=== PATIENT | female | born 1945 | race Caucasian/White ===

== ENCOUNTER → 2024-03-28 08:02 | Outpatient (REF) | payer MEDICARE, BC, SELFPAY | LOC: HWRCS 08:02 | PROVIDERS: ATTENDING PHYSICIAN Internal Medicine Cardiovascular Disease; FAMILY PHYSICIAN Internal Medicine | DX: R07.9 Chest pain, unspecified (principal) | CPT/HCPCS: 93306 ==

== ENCOUNTER → 2024-04-13 10:33 | Outpatient (REF) | payer MEDICARE, BC, SELFPAY | LOC: RCS 10:33 | PROVIDERS: ATTENDING PHYSICIAN Internal Medicine Cardiovascular Disease; FAMILY PHYSICIAN Internal Medicine | DX: R07.9 Chest pain, unspecified (principal) | CPT/HCPCS: 93017; 93350 ==

== ENCOUNTER 2024-10-18 08:41 | Inpatient (IN) | payer MEDICARE, BC, SELFPAY ==
[2024-10-17 19:39] VITALS: BP 124/63
[2024-10-17 19:42] VITALS: BP 124/63
[2024-10-17 19:54] VITALS: BMI 29.3
[2024-10-17 20:00] VITALS: BP 130/64
--- NOTE | 2024-10-17 20:09 | ED.GENMED ---
History of Present Illness
General
Chief Complaint: Chest Pain
Source: patient
Exam Limitations: none
Time Seen by Provider: 10/17/24 20:08
Nursing documentation reviewed up to this point in time: agreed with
History of Present Illness
History of Present Illness:
79-year-old female with history of NIDDM, HLD, presents from home for chest pressure.
Has had palpitations/heart racing for months, worked up by Dr. Henriquez with stress test, he is aware her HR is in 40's at times then goes 'fast at times.' Today what was different is 4 p.m. she broke out in a sweat and felt faint, sat down and it
passed after a couple minutes. Her checked: BP was 137/80 and oxygen was 98% She felt a little nauseous, did not vomit. She dozed off, awakened at 5 p.m. with 'like someone was sitting on my chest' pressure. Called EMS who instructed her to
take and chew 4 Baby ASA which she did, CP was 7/10, they gave her NTG SL x 3 en route, on arrival CP was 2/10 and now she states her chest pain is gone.
On arrival HR 49, during initial exam HR 72 NSR
Past History
Past History
ED Past Medical History: Hypercholesterolemia and NIDDM
ED Past Surgical History: Appendectomy, Cholecystectomy and Gynecological (Hysterectomy)
Social History
Tobacco: Non-smoker
Alcohol: None
Personal:
Living: with family
Employment: Retired
Review of Systems
Review of Systems
Allergies reviewed?: Yes
All Other Systems: ROS reviewed and negative except as documented in HPI and ROS
Constitutional: Denies fever or fatigue
Respiratory: Denies trouble breathing
Cardiac: Reports chest pain, diaphoresis and palpitations; Denies syncope
ABD/GI: Reports nausea; Denies abdominal pain, vomiting or diarrhea
: Denies dysuria or difficulty voiding
Musculoskeletal: Reports no symptoms
Skin: Reports no symptoms
Neurological: Reports no symptoms
Phy Exam
Physical Exam
Physical Exam:
GENERAL: No acute distress. A&Ox3.
CONSTITUTIONAL: Afebrile.
EYES: clear, conjunctivae normal
ENMT: moist mucus membranes, Pharynx nl
RESPIRATORY: Regular respirations, nonlabored, lungs clear.
CARDIOVASCULAR: Regular rate and rhythm, no murmurs, no rubs.
GI: Soft, nontender, normal BS
MUSCULOSKELETAL: Moves with ease. Well perfused. No edema
SKIN: Warm, dry, pink
PSYCH: Normal mood and affect. Well kept, interactive and appropriate
NEUROLOGIC: Awake, alert and oriented. No focal neurological deficits
Scores
Heart Score for Chest Pain Patients
STEMI patient?: No
History: Moderately Suspicious
ECG: Normal
Age: >/= 65 years
Risk Factors: 1 or 2 Risk Factors
Troponin: >1 - <3 x Normal Limit
Heart Score for Chest Pain Patients: 5
Heart Score Risk: 20.3% MACE over next 6 weeks
Course
Orders/Labs/Results
Orders:
Orders
10/17/24 Dinner
Cholesterol Lowering
At Your Request: Full Participation
Cholesterol Lowering: Sodium, 2 Gram
10/17/24 19:40
Electrocardiogram (*1) Urgent
Reason for Study: Chest Pain
EKG- Treatment ONCE
10/17/24 20:06
Complete Blood Count/With Diff Urgent
Comprehensive Metabolic Panel Urgent
Troponin I Urgent
10/17/24 20:45
CR Chest - 2 Views Urgent
Comment:
Reason For Exam: chest pain
10/17/24 20:48
Heparin 4,000 units IV NOW STA
Nursing to Place Non Medication Order As Directed
Physician Order: PTT 6 hours after initial start of Heparin infusion
Above order entered?: Yes
10/17/24 21:00
Heparin 28345 Units/250 ml 25,000 units in 250 ml IV PER PROTOCOL
Weight to be used for heparin protocol in kilograms (kg):: 72.5
Protocol:: Cardiac Tx/Acute Coronary
PTT Goal Range to be used:: PTT 73 to 111 seconds
Order type:: Initial
INITIAL Infusion Dose (UNITS/KG/hr) & then follow protocol:: 12 units/kg/hr
Infusion Dose in UNITS/hr & then follow protocol (UNITS/hr):: 850
INFUSION RATE in mL/hr & then follow protocol (mL/hr):: 8.5
PTT less than or equal to 64 seconds:: Increase rate by 200 units/hr (+ 2 mL/hr)
PTT 64.1 to 72.9 seconds:: Increase rate by 100 units/hr (+ 1 mL/hr)
PTT 73 to 111 seconds:: Target Range. No change in rate.
PTT 111.1 to 130.9 seconds:: Decrease rate by 100 units/hr (- 1 mL/hr)
PTT 131 to 199.9 seconds:: HOLD for 1 hr. Then decrease rate by 200 units/hr (- 2 mL/hr)
PTT greater than or equal to 200 seconds:: HOLD for 2 hrs & Notify Provider. Then decrease by 200 units/hr (-
2 mL/hr)
Lab follow-up:: Each change, PTT q6h until 2 consecutive are therapeutic. Then PTT
daily.
10/17/24 21:04
CARDIOLOGY CONSULT Urgent
Consulting Provider: Emanuel Elena
Was physician already notified: Yes
Reason for consult: NSTEMI
10/17/24 21:12
PTT Urgent
Comment: Obtain baseline before beginning heparin infusion if not already collected
10/17/24 21:19
Nitroglycerin Ointment [Nitro-Bid] 1 inch TOPICAL NOW STA
10/17/24 22:18
Admit/Transfer Patient As Directed
Co-Sign Provider:
Level of Care: Observation services
Assign to:: IVU
Physician / Group: Tasha Davila
Diagnosis: Chest pain/acute coronary syndrome
10/17/24 22:19
PRN Pain Medication Management As Directed
May give lesser potent ordered pain med per pt: Yes
preference::
Protocol:: Medication orders for pain may be administered in a
manner that supports deferring to patient preference
when the pt is:
- Requesting an ordered lesser potent pain medication.
Least to most potent pain medications are defined
as: acetaminophen < NSAID < tramadol < opioids
(morphine, oxycodone, hydromorphone).
- Requesting a lesser dose of the same medication IF
ORDERED.
- Requesting a less intrusive route of administration
if both routes are prescribed by the provider (PO <
IV).
10/17/24 22:20
Code Status As Directed
Resuscitation Status: Full Code
10/17/24 23:00
Flush (0.9% Sodium Chloride) [Flush (Nss)] See Dose Instructions IV PER PROTOCOL
10/17/24 23:01
Troponin I Urgent
10/17/24 23:34
Electrocardiogram (*1) Q6H
Reason for Study: Chest Pain
Comment: at admission and Q3H for total of 3, to be done with each troponin
Troponin I Q3H
Comment: at admit & Q3H for 3 total including ED draws, obtain ECG with each level
10/17/24 23:34
Glycohemoglobin (HgbA1c) Routine
TSH Routine
Activity As Directed
Activity Level: Out of Bed- Ad Jocy
INT (Intravenous Needle Therapy) As Directed
Comment: maintain peripheral IV access
Intake/ Output As Directed
Frequency: Per unit guidelines
Vital Signs As Directed
Frequency: q4h
Weight As Directed
Frequency: Once
10/18/24 00:00
Nitroglycerin Ointment [Nitro-Bid] 1 inch TOPICAL Q6
10/18/24 02:34
Troponin I Q3H
Comment: at admit & Q3H for 3 total including ED draws, obtain ECG with each level
10/18/24 03:20
PTT Urgent
10/18/24 05:34
Electrocardiogram (*1) Q6H
Reason for Study: Chest Pain
Comment: at admission and Q3H for total of 3, to be done with each troponin
10/18/24 Breakfast
NPO
Allow oral meds: Yes
Allow clear liquids: No
Cardiovascular Evaluation IN AM
Complete Blood Count/No Diff IN AM
Comprehensive Metabolic Panel IN AM
10/18/24 08:00
Atorvastatin [Lipitor] 40 mg PO DAILY
Dapagliflozin [Farxiga] 25 mg PO DAILY
Glimepiride [Amaryl] 4 mg PO BID AT 0800,1700
Losartan/Hydrochlorothiazide [Hyzaar 50-12.5] 1 tab PO DAILY
Prednisolone Acetate [Pred Forte 1% Eye Drops] 1 drop RIGHT EYE BID
Abnormal Lab Results
10/17/24
20:06
RBC 5.88 H 10^6/uL
(4.20-5.40)
Hgb 11.2 L g/dL
(12.0-16.0)
Hct 36.2 L %
(37.0-47.0)
MCV 61.6 L fL
(81.0-99.0)
MCH 19.0 L pg
(27.0-31.0)
MCHC 30.9 L g/dL
(33.0-37.0)
RDW 20.5 H %
(11.5-14.5)
Abs Immat Gran (auto) 0.2 H 10^3/uL
(0-0.05)
Absolute Neuts (auto) 6.9 H 10^3/uL
(1.4-6.5)
Absolute Lymphs (auto) 1.0 L 10^3/uL
(1.2-3.4)
Immature Gran % 1.7 H %
(0-0.5)
Neutrophils % 78.9 H %
(42.2-75.2)
Lymphocytes % 11.1 L %
(20.5-51.1)
BUN 21 H mg/dl
(7-17)
Glucose 178 H mg/dl
(70-99)
Total Bilirubin 2.6 H mg/dl
(0.2-1.3)
Troponin I 0.115 H* ng/ml
10/17/24 20:06
10/17/24 20:06
Vital Signs
Initial and Last Documented VS:
Initial Vital Signs
BP
124/63
10/17/24 19:39
Last Documented Vital Signs
Temp Pulse Resp BP Pulse Ox
98.3 F 83 15 134/66 95
10/17/24 19:42 10/18/24 00:00 10/18/24 00:00 10/17/24 22:00 10/18/24 00:00
Enamel Machine Operator consulted with Physician
Enamel Machine Operator consulted with physician?: Yes
Name of Physician Consulted: Margarito
MDM/Problems Addressed
Differential Diagnosis Includes:
ACS, NM, GERD
MDM/Problems Addressed:
79-year-old female with history of NIDDM, HLD, presents from home for chest pressure.
Has had palpitations/heart racing for months, worked up by Dr. Henriquez with stress test, he is aware her HR is in 40's at times then goes 'fast at times.' Today what was different is 4 p.m. she broke out in a sweat and felt faint, sat down and it
passed after a couple minutes. Her checked: BP was 137/80 and oxygen was 98% She felt a little nauseous, did not vomit. She dozed off, awakened at 5 p.m. with 'like someone was sitting on my chest' pressure. Called EMS who instructed her to
take and chew 4 Baby ASA which she did, CP was 7/10, they gave her NTG SL x 3 en route, on arrival CP was 2/10 and now she states her chest pain is gone.
On arrival HR 49, during initial exam HR 72 NSR
EKG on arrival: sinus bradycardia HR 51 with 1st degree block, RBBB
Afebrile, NAD
8:30 p.m.
CBC no clinically significant abnormality
CMP no clinically significant abnormality
Troponin elevated 0.115
Heparin drip started
Hospitalist and curtain cutter hand notified of admission. Cardiology consult in
At Dr. Elena's request, case reviewed with field control inspector Dr. Rapp who states does not think STEMI, if pt is pain free, on Heparin and Nitrate ok for now.
9:19 p.m.
Pt remains pain free
*Critical Care Note
Total Time (30-74mins, 75-104mins- exclusive of procedures): Not Applicable
ED Attending Note
-
Portions of this chart may have been created with voice recognition software.� Occasional wrong word or��sound alike� substitutions may have occurred due to the inherent limitations of voice recognition software.
Discharge Plan
Departure
Patient Disposition: Admit
Date of Disposition: 10/17/24
Time of Disposition: 21:02
Admit to: Telemetry
Presentation/result/management discussed w/ accepting MD/DO: Hospitalist
Condition: Fair
Discharge Problem:
Acute non-ST elevation myocardial infarction (NSTEMI)
Interventions
Interventions:
*Risk Screen - Suicide Last Done: 10/17/24 19:56
*General Assessment Last Done: 10/17/24 19:56
ED- Fall Risk Assessment Last Done: 10/17/24 19:56
*ED COVID-19 Vaccine History Last Done: 10/17/24 19:56
ED- Cardiac Assessment Last Done: 10/17/24 19:56
[2024-10-17 20:19] LABS: % Basophils 0.3 % (0-2); % Eosinophils 0.9 % (0-6); % Immature Granulocytes 1.7 % (0-0.5); % Lymphocytes 11.1 % (20.5-51.1); % Monocytes 7.1 % (1.7-9.3); % Neutrophils 78.9 % (42.2-75.2); Absolute Eosinophils 0.1 10^3/uL (0-0.7); Absolute Immature Granulocytes 0.2 10^3/uL (0-0.05); Absolute Monocytes 0.6 10^3/uL (0.1-0.6); Absolute Neutrophils 6.9 10^3/uL (1.4-6.5); Hematocrit 36.2 % (37.0-47.0); Hemoglobin 11.2 g/dL (12.0-16.0); Mean Corp Hgb Conc. 30.9 g/dL (33.0-37.0); Mean Corpuscular Volume 61.6 fL (81.0-99.0); Nucleated Red Blood Cells % 0.2 %; Platelet Count 150 10^3/uL (130-400); Red Blood Cell Count 5.88 10^6/uL (4.20-5.40); Red Cell Dist. Width 20.5 % (11.5-14.5); White Blood Cell Count 8.8 10^3/uL (4.8-10.8)
[2024-10-17 20:28] LABS: ALT (SGPT) 22 U/L (0-35); AST (SGOT) 26 U/L (14-36); Albumin 4.6 g/dl (3.5-5.0); Alkaline Phosphatase 72 U/L (38-126); Blood Urea Nitrogen 21 mg/dl (7-17); Calcium 9.4 mg/dl (8.4-10.2); Carbon Dioxide 24 mmol/L (22-30); Chloride 101 mmol/L (98-107); Estimated Creatinine Clearance 63 ml/min; Glucose 178 mg/dl (70-99); Potassium 3.9 mmol/L (3.5-5.1); Sodium 138 mmol/L (135-145); Total Bilirubin 2.6 mg/dl (0.2-1.3); Total Protein 6.7 g/dl (6.3-8.2); eGFR > 60.00
[2024-10-17 20:41] LABS: Troponin I 0.115 ng/ml
[2024-10-17 21:00] VITALS: BP 141/63
[2024-10-17] MEDS: HEPARIN 4000 UNITS IV (21:13)
--- NOTE | 2024-10-17 21:14 | HPS.HSE ---
Family Physician
-
Family Physician: Delma Ibanez
Chief Complaint
-
Chest pain
History of Present Illness
Patient is a 79-year-old female with past medical history significant for HLD and NIDDM who presented to [place] ED for evaluation of acute onset chest pain. Patient has had palpitations and heart racing for months, has seen Dr. Henriquez for
workup including stress test. Patient states he is aware that her HR can be 40s at times and then becomes tachycardic. Today patient had an episode of crushing chest pain at approximately 1600 where the pain was associated with diaphoresis and
nausea. Symptoms subsided enough with rest that she dozed off for a short period of time before being woken up with signifcant chest pressure, described as, 'someone sitting on my chest.' EMS was called, she took 4 baby aspirins prior to their
arrival and they administered 3 SL NTG on route to hospital. Interventions were effective and chest pain on arrival was minimal. Patient denies fever, chills, cough, vomiting, constipation, diarrhea or urinary symptoms.
Medical History
Past Medical History
Past Medical History: Reports Other
Additional Past Medical History:
hyperlipidemia
NIDDM
Past Surgical History: Reports Other
Additional Past Surgical History:
Appendectomy
Cholecystectomy
Hysterectomy
Left knee meniscus
Social History
Tobacco: Non-smoker
Alcohol: Occasional
Drug: None
Personal:
Living: With Family
Employment: Retired
Family History
Family History: Other (Father: CAD with penta - bypass; Mother: DM)
Allergies / Home Medications
Allergies reflects when Allergies were last updated in [facility].
Home Medications with original date entered in [facility]
Allergy/Medication List:
Allergies
Allergy/AdvReac Type Severity Reaction Status Date / Time
No Known Allergies Allergy Unverified 10/17/24 20:53
Home Medications
Hair,Skin and Nails 2 gummy PO DAILY 10/17/24
atorvastatin 10 mg tablet 40 mg PO DAILY 10/17/24
cholecalciferol (vitamin D3) 25 mcg (1,000 unit) tablet 25 mcg PO DAILY 10/17/24
empagliflozin 25 mg tablet (Jardiance) 25 mg PO DAILY 10/17/24
glimepiride 4 mg tablet 4 mg PO BID 10/17/24
losartan 50 mg-hydrochlorothiazide 12.5 mg tablet 1 tab PO DAILY 10/17/24
metformin 500 mg tablet,extended release 24 hr 500 mg PO BID 10/17/24
milk thistle 1 tab PO DAILY 10/17/24
prednisolone acetate 1 % eye drops,suspension 1 drp RIGHT EYE BID 10/17/24
Review of Systems
-
History Source: Patient
A 12 point ROS was completed and negative except as noted: Yes
Constitutional: Reports No Symptoms
EENT: Reports No Symptoms
Respiratory: Reports No Symptoms
Cardiac: Reports Chest Pain, Diaphoresis, Palpitations and Other (near syncope)
Abdomen/GI: Reports Nausea
: Reports No Symptoms
Musculoskeletal: Reports No Symptoms
Skin: Reports No Symptoms
Neurological: Reports No Symptoms
Endocrine: Reports No Symptoms
Hematologic/Lymphatic: Reports No Symptoms
Psych: Reports No Symptoms
Physical Exam
Vital Signs
Vital Signs
Temp Pulse Resp BP Pulse Ox
98.3 F 84 14 130/64 96
10/17/24 19:42 10/17/24 20:45 10/17/24 20:45 10/17/24 20:00 10/17/24 20:45
Physical Exam
General: Well Developed, Well Nourished, No Apparent Distress, Comfortable and Conversant
HEENT: NormoCephalic, Moist mucous membranes, Atraumatic, PERRLA, [place] Conjunctivae, Nose Appears Normal and Ears Appear Normal
Respiratory: Clear and Non Labored Respirations
Cardiac: S1/S2 and Regular Rhythm; No Murmur, Rub or Gallop
Breast: Deferred by me
GI: Soft, Non Tender, Non Distended and Normal Bowel Sounds; No Organomegaly
Rectal: Deferred by Provider
Genito-urinary: Deferred by me
Musculoskeletal: No Clubbing, No Cyanosis and No Edema
Skin: Warm and IV/Catheter Site; No Rash
Neuro: Awake, Alert, AO x 3 and Nonfocal/grossly intact
Hematologic/Lymphatic: No Lymphadenopathy
Psych: Calm and Intact Judgment/Insight
Laboratory Results
-
10/17/24 20:06
10/17/24 20:06
Laboratory Results
Total Bilirubin 2.6 mg/dl (0.2-1.3) H 10/17/24 20:06
AST 26 U/L (14-36) 10/17/24 20:06
ALT 22 U/L (0-35) 10/17/24 20:06
Alkaline Phosphatase 72 U/L (38-126) 10/17/24 20:06
Troponin I 0.115 ng/ml H* 10/17/24 20:06
Data Reviewed
-
Medical Tests (Nuc Med, Echo, EKG etc): Report Reviewed by me (EKG: SINUS BRADYCARDIA WITH 1ST DEGREE A-V BLOCK RIGHT BUNDLE BRANCH BLOCK ABNORMAL ECG)
Lab Data: Labs Reviewed by me (Trop 0.115)
Impression/Plan
-
IMPRESSION/PLAN:
#Acute coronary syndrome
Trop 0.115
EKG: SINUS BRADYCARDIA WITH 1ST DEGREE A-V BLOCK
RIGHT BUNDLE BRANCH BLOCK
- Admit to IVU for observation
- Consult Cardiology
- Trend troponin with EKG
- Nitro paste
- Heparin gtt
#hyperlipidemia
- continue atorvastatin
#NIDDM
- check A1C
- TSH
- Continue empagliglozin, glimepiride
- hold metformin
- NPO at midnight
- AccuChecks q6 while NPO (AC & HS when eating)
- SSI
Full Code
DVT Prophylaxis: Heparin gtt
[2024-10-17] MEDS: HEPARIN 25000 UNITS/250 ML IV (21:15)
[2024-10-17 21:31] VITALS: BP 138/67
[2024-10-17] MEDS: NITRO-BID 1 INCH TOPICAL (21:31)
--- NOTE | 2024-10-17 21:34 | W.PN.UPDATE ---
Update Note
Progress Note Update
Patient seen in conjunction with EMBEDDED SOFTWARE DEVELOPER. I agree with the findings on history and physical. I concur with assessment and plan with otherwise.
This is a 79-year-old with a past medical history of [id number] diabetes and hyperlipidemia, known bradycardia who presented to the emergency department with onset of chest discomfort at around 4 PM today. Patient reports history of
palpitations frequently with prior workup with a negative stress and a normal echo a few months ago. She felt like she may be having palpitations again but this time it was associated with nausea and diaphoresis. No lightheadedness or dizziness.
Denies recent exertional chest pain or exertional dyspnea
On arrival to the emergency department she was afebrile, blood pressure was stable at 130/60 with a pulse of 84 and she was at 96% on room air. ECG shows sinus bradycardia at 51, with 4 degree AV block and right bundle branch which is unchanged
from prior. She does have T wave changes in the lateral leads that appears to be mild depressions. Otherwise no other changes. This was discussed with cardiology. Troponin was 0.115. CBC was unremarkable and unchanged from prior. Likewise
chemistries were all within normal limits. BUN/creatinine were within normal limits. Chest x-ray was clear.
Chest pain improved with aspirin and 3 doses of nitroglycerin as she has been chest pain-free. Case discussed with cardiology low threshold to consult interventional cardiology
Assessment and plan
NSTEMI - given nasuea, diaphoresis and improvement with nitroglycerin more likely ischemic rather than related to symptomatic bradyarrythmia.
- Admit to IVU/obs
- telemetry
- aspirin 81, heparin gtt, nitroglycerin patch for now
- continue statin, no beta blockade
- trend trop with ECG, low threshold to consult interventional
- NPO after midnight.
- echo, a1c, cardiovascular panel in am
- will benefit from GLP-1 agonist given BMI if CAD confirmed.
- Continue losartan/hctz
DM II
- hold metformin glimepiride
- continue sglt II inhibitor
- sliding scale insulin q6
Code status - Full.
[2024-10-17 21:49] LABS: APTT 29.3 Sec (23.4-35.0)
[2024-10-17 22:00] VITALS: BP 134/66
[2024-10-17 22:39] VITALS: BMI 29.3
[2024-10-17 23:51] LABS: Troponin I 0.472 ng/ml
[2024-10-18] VITALS (23 sets, daily range): BP systolic 99–142; BP diastolic 44–73
[2024-10-18] MEDS: NITRO-BID 1 INCH TOPICAL ×2 (00:51→06:32)
--- NOTE | 2024-10-18 04:00 | DOWNTIME ---
There was a [employer] Downtime on 10/18/2024 from 0100 to 10/18/2024 at 0350. Downtime documentation of patient's care, including medication administrations, has been reconciled in the electronic record per guidelines. Refer to the
patient's paper chart under the miscellaneous tab to see printed paper medication records and downtime forms.
[2024-10-18 04:01] LABS: APTT 75.2 Sec (23.4-35.0)
[2024-10-18 06:24] LABS: Hematocrit 35.4 % (37.0-47.0); Hemoglobin 11.1 g/dL (12.0-16.0); Mean Corp Hgb Conc. 31.4 g/dL (33.0-37.0); Mean Corpuscular Hgb 19.2 pg (27.0-31.0); Mean Corpuscular Volume 61.1 fL (81.0-99.0); Platelet Count 140 10^3/uL (130-400); Red Blood Cell Count 5.79 10^6/uL (4.20-5.40); Red Cell Dist. Width 20.3 % (11.5-14.5); White Blood Cell Count 7.6 10^3/uL (4.8-10.8)
[2024-10-18 06:36] LABS: ALT (SGPT) 22 U/L (0-35); AST (SGOT) 27 U/L (14-36); Albumin 4.3 g/dl (3.5-5.0); Alkaline Phosphatase 51 U/L (38-126); Blood Urea Nitrogen 14 mg/dl (7-17); Carbon Dioxide 26 mmol/L (22-30); Chloride 102 mmol/L (98-107); Estimated Creatinine Clearance 73 ml/min; Glucose 99 mg/dl (70-99); HDL Cholesterol 52 mg/dl; LDL Cholesterol, Calculated 23 mg/dl; Potassium 3.2 mmol/L (3.5-5.1); Sodium 141 mmol/L (135-145); Total Bilirubin 2.5 mg/dl (0.2-1.3); Total Cholesterol 98 mg/dl (50-199); Total Protein 6.4 g/dl (6.3-8.2); Triglyceride 119 mg/dl (10-149); Very Low Density Lipoprotein 23 mg/dl (0-30); eGFR > 60.00
[2024-10-18 07:05] LABS: TSH 2.61 uIU/ml (0.47-4.68)
[2024-10-18] MEDS: PRED FORTE 1% EYE DROPS 1 DROP RIGHT EYE ×2 (08:34→20:01)
--- NOTE | 2024-10-18 08:34 | CON.CAR ---
Addendum entered and electronically signed by Leobardo Brooks MD 10/18/24 11:53:
Attending addendum: Patient seen and examined. PA note reviewed and findings confirmed by me. Briefly this is a 79 y/o female with a PMH notable for diabetes, RBBB who presented to [facility] for evaluation of substernal chest pressure
nausea and diaphoresis. Her initial troponin measured 0.115 ng/ml. She was chest pain free. This morning she remained chest pain free but developed complete heart block.
Gen: Awake, alert, conversant
HEENT: NC/AT, sclera anicteric
Lungs: Clear anterior and posterior lung heller
CV: Marked ranjeet without murmur. Complete heart block noted on monitor
Ext: No edema
RECOMMENDATION:
- plan left heart catheterization
- risk and benefits explained to patient and family
- Possible that she will need a permanent pacemaker. EP colleagues notified.
- Further management decisions after angiogram is completed
Original Note:
Consultation
Consultation Request
Date/Time Consultation Requested: 10/17/2024
Date/Time Consultation Performed: 10/18/2024
Requesting Provider: Dr. Davila
Performing Provider: Chetna Agarwal PA-C for Dr. Leobardo Brooks
Reason for Consultation: Chest pain, palpitations/rapid heartbeat
Medical History
-
History of Present Illness:
Patient is a 79-year-old male female with past medical history significant for type 2 diabetes, intermediate thalassemia anemia, PVCs and right bundle branch block who presented to emergency department 10/17/2024 with chest pressure. Patient
reports she was cooking dinner when she developed acute onset chest tightness/pressure associated with neck pain, shortness of breath, diaphoresis and nausea. She reports she has history of intermittent palpitations and rapid heartbeats but this
was different than what she has felt previously. EMS was called and she was given 4 baby aspirin and sublingual nitroglycerin x 3 in route. On arrival to ER chest pain was 2 out of 10 and slowly subsided. Initial troponin 0.115 and trending
upward now 0.690. EKG initially showed sinus bradycardia with first-degree AV block and right bundle branch block. Chest x-ray was unremarkable. Patient was placed on IV heparin drip and currently is chest pain-free at time of this evaluation.
Of note patient had echocardiogram and stress echo in March 2024. Echo showed preserved ejection fraction with mild MR. Stress echo was negative for ischemia at sub max heart rate of 56%. There were short atrial tachycardia noted during study.
Past medical history:
Type 2 diabetes
Intermediate thalassemia anemia
Right bundle branch block
PVCs
Atrial tachycardia
Appendectomy
Cholecystectomy
Hysterectomy
Left knee meniscus
Past Medical History
Past Medical History: Other (See HPI)
Past Surgical History: Appendectomy, Cholecystectomy, Gynecological (Hysterectomy) and Orthopedic (Left knee meniscus surgery)
Social History
Tobacco: Non-Smoker
Alcohol: Occasional
Drug: None
Personal:
Living: With Family
Family History
Family History: CAD (Father CABG) and Diabetes (Mother)
Allergies / Home Medications
Allergy/AdvReac Type Severity Reaction Status Date / Time
No Known Allergies Allergy Unverified 10/17/24 20:53
�Medication �Instructions �Recorded �Confirmed �Type
Hair,Skin and Nails 2 gummy PO DAILY 10/17/24 10/17/24 History
atorvastatin 10 mg tablet 40 mg PO DAILY 10/17/24 10/17/24 History
cholecalciferol (vitamin D3) 25 25 mcg PO DAILY 10/17/24 10/17/24 History
mcg (1,000 unit) tablet
empagliflozin 25 mg tablet 25 mg PO DAILY 10/17/24 10/17/24 History
(Jardiance)
glimepiride 4 mg tablet 4 mg PO BID 10/17/24 10/17/24 History
losartan 50 mg-hydrochlorothiazide 1 tab PO DAILY 10/17/24 10/17/24 History
12.5 mg tablet
metformin 500 mg tablet,extended 500 mg PO BID 10/17/24 10/17/24 History
release 24 hr
milk thistle 1 tab PO DAILY 10/17/24 10/17/24 History
prednisolone acetate 1 % eye 1 drp RIGHT EYE BID 10/17/24 10/17/24 History
drops,suspension
Review of Systems
-
History Source: Patient
All other systems: Negative unless noted
Physical Exam
Vital Signs
Temp Pulse Resp BP Pulse Ox
98.3 F 80 15 123/61 95
10/17/24 19:42 10/18/24 00:51 10/18/24 00:45 10/18/24 06:32 10/18/24 00:45
GEN: No distress, awake, Ox3, sitting in bed
HEENT: supple, anicteric, mmm
LUNGS: CTA, no wheezes/rales
CV: Reg, S1/S2, no murmur, rub or gallop
ABD: soft, BS+, NT/ND
EXT: No edema, clubbing or cyanosis
NEURO: Gross non-focal
SKIN: No rash, warm, dry, pink
Lab Results
10/18/24 05:54
10/18/24 05:54
Troponin I 0.690 ng/ml H* D 10/18/24 03:00
Impression / Plan
-
Family Physician: Delma Ibanez
Administrative Support Coordinator: Kevon Henriquez
Impression:
Presented 10/17/2024 with acute onset chest pain, shortness of breath, nausea and neck pain
Palpitations
Abnormal troponin
NSTEMI
Hypokalemia
Type 2 diabetes
Intermediate thalassemia anemia
Right bundle branch block
PVCs
Atrial tachycardia
Appendectomy
Cholecystectomy
Hysterectomy
Left knee meniscus
Stress echo 04/13/2024: 6:51, 8 METS, 56% APMHR, EKG inconclusive for ischemia. Rare PACs, short runs of atrial tachycardia with 1 ventricular couplet. Blunted heart rate response to exercise. No regional wall motion abnormality at some max heart
rate
Echo 03/28/2024: EF 60 to 65%. No regional wall motion abnormalities, mild MR
Plan:
Presented 10/17/2024 with acute onset chest pain, shortness of breath, nausea and neck pain. Pain resolved with sublingual nitroglycerin
-Found to have abnormal troponin initial 0.115 and upward trending currently 0.690. Trend to peak. EKG without ischemia
-Concern for NSTEMI. Patient currently chest pain-free on IV heparin
-Patient agreeable to undergo cardiac catheterization
-Lipids 10/18/2024 TC 98, HDL 52, LDL 23, triglycerides 119. Continue atorvastatin
Longstanding history of intermittent palpitations described as rapid heartbeats. Patient did have atrial tachycardia during stress test in March 2024. However she does have resting bradycardia with heart rates in 40s that has limited initiation of
AV drake blocking agents. Continue to monitor on telemetry. Consider low-dose beta-della
Hypokalemia -potassium 3.2. Will replete
Hypertension continue losartan HCTZ. Consider addition of beta-della
Type 2 diabetes, hemoglobin A1c pending. DM agents as patient n.p.o. for cardiac catheterization
HPI 10/18/2024:
Patient is a 79-year-old male female with past medical history significant for type 2 diabetes, intermediate thalassemia anemia, PVCs and right bundle branch block who presented to emergency department 10/17/2024 with chest pressure. Patient
reports she was cooking dinner when she developed acute onset chest tightness/pressure associated with neck pain, shortness of breath, diaphoresis and nausea. She reports she has history of intermittent palpitations and rapid heartbeats but this
was different than what she has felt previously. EMS was called and she was given 4 baby aspirin and sublingual nitroglycerin x 3 in route. On arrival to ER chest pain was 2 out of 10 and slowly subsided. Initial troponin 0.115 and trending
upward now 0.690. EKG initially showed sinus bradycardia with first-degree AV block and right bundle branch block. Chest x-ray was unremarkable. Patient was placed on IV heparin drip and currently is chest pain-free at time of this evaluation.
Of note patient had echocardiogram and stress echo in March 2024. Echo showed preserved ejection fraction with mild MR. Stress echo was negative for ischemia at sub max heart rate of 56%. There were short atrial tachycardia noted during study.
Data Reviewed
-
EKG: Report Reviewed by me, Discussed with Physician, Discussed with Nurse and Discussed with Patient
Radiology: Report Reviewed by me, Discussed with Physician, Discussed with Nurse and Discussed with Patient
Labs: Labs Reviewed by me, Discussed with Physician, Discussed with Nurse and Discussed with Patient
Old Records: Reviewed
[2024-10-18] MEDS: KCL 40 MEQ PO (08:35)
[2024-10-18] MEDS: HYZAAR 50-12.5 1 TAB PO (09:15)
[2024-10-18 09:30] LABS: Glycohemoglobin (HgbA1c) 7.1 % (4.0-5.6)
[2024-10-18 09:34] LABS: APTT 60.5 Sec (23.4-35.0)
[2024-10-18 09:59] LABS: Troponin I 0.438 ng/ml
[2024-10-18 10:28] LABS: Glucose - Point of Care 146 mg/dl (70-99)
[2024-10-18 12:12] LABS: ACT-LR - POC 150 Seconds (116-155)
--- NOTE | 2024-10-18 12:31 | W.PN.HOSP.TC ---
Today's Communication/Plan
-
Await cardiac catheterization
Assessment / Plan
Assessment / Plan
Gen-AAOx3, NAD
HEENT-NC, AT, anicteric, clear oral mm
Neck-supple
CV-reg, no M, +S1/S2
Lungs-clear B/L
Abd-soft, NT, ND
Ext-no edema
Musculoskeletal-no cyanosis, clubbing
Skin-warm and dry
Neuro-grossly non-focal
Psych-calm, cooperative
Complete heart block -noted on EKG this morning. Discussed with Dr. Brooks. May need permanent pacemaker. Awaiting cardiac catheterization.
NSTEMI -continue IV heparin. Troponins trending down. Awaiting cardiac catheterization. Cardiology following.
Essential hypertension -stable.
DM 2 without hyperglycemia -hemoglobin A1c 7.1%. Glucose 99 this morning. Hold oral agents. Use low resistance insulin scale.
Hyperlipidemia -continue atorvastatin.
Hypokalemia -check magnesium, replete.
Microcytic anemia -history of thalassemia. Follow-up as outpatient.
Full code
Updated at the bedside.
Anticipated Discharge: > 48 hours
Subjective/Interval History
-
Date of Service: October 18, 2024
Patient seen and examined. Complaining of mild lightheadedness. Denies chest pain.
Objective Data
-
Labs:
Laboratory Results
10/18/24 10/18/24 10/18/24
03:00 05:54 09:14
WBC 7.6
Hgb 11.1 L
Hct 35.4 L
Plt Count 140
APTT 75.2 H 60.5 H
Sodium 141
Potassium 3.2 L
Chloride 102
Carbon Dioxide 26
BUN 14
Creatinine 0.6
Glucose 99
Calcium 9.0
Total Bilirubin 2.5 H
AST 27
ALT 22
Alkaline Phosphatase 51
Vital Signs:
Vital Signs
Temp Pulse Resp BP Pulse Ox
98.3 F 41 14 131/64 95
10/17/24 19:42 10/18/24 11:15 10/18/24 11:30 10/18/24 09:15 10/18/24 11:30
Review of Systems
-
History Source: Patient
All other systems: Reviewed and negative
[2024-10-18 13:17] LABS: Magnesium 1.8 mg/dl (1.6-2.3)
--- NOTE | 2024-10-18 13:22 | ITS.CL.CATH ---
Visual Manager - Catheterization
Cardiac Catheterization
Procedure Report:
LEFT HEART CATHETERIZATION
Date of Procedure: October 18, 2024
Referring: Dr. Leobardo Brooks
PROCEDURES:
1. Left heart catheterization with coronary advised ventriculography
INDICATION: Chest pain with mildly elevated troponin and development of complete heart block in the emergency room earlier this morning. Troponin peaked at 0.690 ng/ml. Prior history of SVT, palpitations and near syncope
ACCESS: Right radial artery, 6 [place] sheath in right common femoral vein, 6 [place]er sheath
HEMODYNAMICS : (mmHg)
AO (s/d, m) : 134/53, 78
LV (s/d) : 138/21
LVEDP : 36
CORONARY FINDINGS
DOMINANCE: Right
LEFT MAIN: Normal
LEFT ANTERIOR DESCENDING: The LAD arises normally from the left main and runs in the anterior interventricular groove. The LAD has only minor luminal irregularities over its course and no focal obstructive stenosis.
CIRCUMFLEX: The circumflex is a medium caliber nondominant vessel that supplies a single sizable obtuse marginal branch. Only minor irregularities are present
RIGHT CORONARY ARTERY: The right coronary artery is a dominant vessel that is widely patent over its course
VENTRICULOGRAPHY: Left ventriculography is performed in HOPE and UZBEK projections. The digital single-plane ventricular ejection fraction is visually estimated at 35-40% with a moderate sized anterior and anterolateral wall motion abnormality.
RADIATION SUMMARY: Fluoro Time (min): 2.6, Dose (mGy): 201, DAP (Gy.cm2) : 19.7
Closure Device: TR band and manual pressure for right common femoral vein
CONCLUSIONS
1. Nonobstructive coronary vessels
2. Anterior and anterolateral wall motion abnormalities possible atypical Takotsubo's cardiomyopathy
3. Complete heart block
RECOMMENDATIONS
1. Will discuss with EP colleagues.
Copy to: Dr. Kevon Henriquez
[2024-10-18 14:08] LABS: Glucose - Point of Care 177 mg/dl (70-99)
--- NOTE | 2024-10-18 14:18 | PTCARENOTE ---
Dr. Gray at bedside with patient and patient's spouse. Consent signed. Report given to Марина MCGRATH. BS 177. R radial band checked prior to transporting back into EP room. ~7ml of air remain in band. R groin CDI.
--- NOTE | 2024-10-18 14:27 | W.PN.UPDATE ---
Update Note
Progress Note Update
Briefly, patient is a pleasant 79-year-old female with a past medical history significant for dyslipidemia and diabetes mellitus 2 who initially presented to with chest pain concern for NSTEMI. Patient with planned heart catheterization which
demonstrated nonobstructive CAD and anterior/anterolateral wall motion abnormality possibly atypical Takotsubo cardiomyopathy. Patient noted to be in complete heart block with right bundle branch block. Patient follows with Dr. Kevon Henriquez as
outpatient cardiology. We discussed pacemaker indications and device implant in detail. For implant there is an approximate 1:1000 risk of CA/stroke/ and a 1% risk of pneumothorax/tamponade/infection/bleeding. We also discussed post procedure
implant restrictions including positions to avoid with implant arm for first six weeks after implant as well as driving restrictions. I took time to answer all questions. Following thorough discussion, consent signed by patient and . Ancef
ordered for preprocedure prophylaxis. Post procedure orders placed.
--- NOTE | 2024-10-18 16:01 | ITS.CL.PACE ---
[employer] [facility] - Pacemaker Implant
Pacemaker Implant
Procedure Report:
Primary Care Doctor: Delma Ibanez MD
Primary Sales And Training Specialist: Kevon Henriquez MD
Procedure Date: 10/18/2024
Name of procedure:
1. Placement of a dual-chamber pacemaker with left bundle area pacing lead for conduction system pacing
2. Subclavian venography
History:
1. Patient is a pleasant 79-year-old female with past medical history significant for diabetes mellitus type 2, intermittent thalassemia anemia, PVCs, right bundle branch block who presented due to chest pain found to have nonobstructive CAD on
left heart catheterization anterior/anteroseptal wall motion abnormality and complete heart block. Patient not on AV drake blocking agents. Prior stress testing demonstrated high degree block with exercise.
2. Please refer to H&P for complete history.
Indication:
Symptomatic irreversible complete heart block
Not on AV drake blocking agents
Methods:
After informed consent was obtained, the patient was brought to the EP laboratory in a postabsorptive, nonsedated state. Peripheral IV access was established. Prophylactic antibiotics were administered prior to incision. Continuous ECG, blood
pressure, and pulse oximetry were initiated. Cardioversion patch electrodes were placed on the patient's chest and back. A grounding patch was applied to the skin. Sedation was administered by anesthesia services.
In order to define the extrathoracic portion of the subclavian vein and exclude significant venous obstruction or anomalous anatomy, subclavian venography was performed prior to the procedure. Using the patient's left peripheral IV, contrast was
injected and images were recorded. The left subclavian vein and SVC were found to be widely patent.
The left chest was prepared and draped in a sterile fashion. A time-out was performed. Local anesthesia was injected in the subcutaneous tissue in the infraclavicular area. An incision was made medial to the deltopectoral groove. The subcutaneous
tissue was dissected the level of the prepectoral fascia. A subcutaneous pocket was created. Under fluoroscopic guidance and with the assistance of the images from the venogram, 2 separate venipunctures were made using micropuncture and modified
Seldinger technique. These were performed in the extrathoracic portion of the subclavian vein. Guidewires were passed and two peel-away sheaths were placed, and used to advance leads into the circulation.
Fluoroscopy was used to determine likely anatomic site for left bundle branch pacing. The Medtronic C315 sheath was used to deliver the Medtronic 3830 Selectsecure pacing lead with the helix exposed just exposed from the sheath tip during continuous
monitoring when pacemapping the septum during gentle clockwise rotation to obtain a paced QRS morphology of a W pattern in lead V1. Once the suspected optimal site was identified, lead deployment was performed with several rapid rotations as paced
QRS morphology was intermittently monitored until a paced QRS complex in lead V1 demonstrated development of an R wave (qR or rSR). Unipolar pacing impedance dropped by approximately 100 ohms suggesting it had reached the left ventricular
subendocardial. Stable VEgm injury current is present throughout lead position and at end of case. Final unipolar pacing impedance is 1040 Ohms. Unipolar pacing threshold is stable at 0.5 V @ 0.4 ms. The patient had pre-existing right bundle branch
block morphology at baseline. Final conduction system paced QRS complex duration is 125 ms, LVAT is 46 ms, and peak V5 -> peak V1 timing is 79 ms. The C315 sheath was slit under fluoroscopy ensuring lead position and stability.
Next, the right atrial lead was positioned in the right atrial appendage. Adequate sensing and pacing parameters were found, and no diaphragmatic stimulation was seen with high-output pacing. Both sheaths were split, and the leads were secured to
the fascia with Ethibond ties.
The pocket was flushed with antibiotic solution and hemostasis was assured. The generator was connected to the leads and placed inside the pocket. The device was sutured to the fascia. Antibiotic envelope was used. The wound was closed with 3
running layers of absorbable suture, and steri-strips were applied. Dressing applied over steri-strips in standard fashion.
Following the procedure, the patient was taken to the recovery area in stable condition. A chest x-ray to be obtained post procedure as routine.
Lead parameters and device programming:
- RA Lead (Medtronic, Model 5076, # [id number]): Sensing 4.3 mV, Pacing threshold 0.75 V at 0.4 ms, Imp 589 ohm
- RV Lead (Medtronic, Model 3830, #[id number]): Sensing 7.0 mV, Pacing threshold 0.5 V at 0.4 ms, Imp 684 Ohm
- Device: Medtronic, Model W1DR01 pacemaker (# [id number]), programmed DDDR 60-130 ppm
Conclusions:
1. Successful placement of a dual-chamber pacemaker with conduction system pacing (LBBAP)
2. Subclavian venography
Recommendations:
� Return to patient room
� Chest x-ray today, [facility] in a.m.
� Antibiotics while inpatient
� Will start beta-della metoprolol succinate 25 mg in a.m., increase as tolerated
� Follow-up in office as scheduled
Emanuel Elena DO
Clinical Cardiac Rental Coordinator
cc: Delma Ibanez MD; Kevon Henriquez MD
--- NOTE | 2024-10-18 16:50 | PTCARENOTE ---
Patient received from recovery at 1620; Patient's left arm in sling, left upper chest wall with pressure dressing over pacemaker site C/D/I; Right groin site with gauze and tegaderm C/D/I, no oozing, no ecchymosis, no evidence of hematoma; Right
wrist R band in place, no oozing present; Bilateral pedal pulse +2 to palpation, radial pulse +2 to palpation; Patient denies pain, nausea, and vomiting at this time; Patient presently v-paced on monitor; Oxygen saturation 96-97% on 2L NC; HOB
restriction, limb restrictions, and bedrest maintained; Patient updated on plan of care; took patient's own medications home; Call jensen within reach; Care ongoing
--- NOTE | 2024-10-18 17:02 | CM ---
CM following for DC planning needs.
Met w/ patient at bedside to complete initial assessment.
Pt. resides w/ spouse in a private, single level home. She is functionally indep. at baseline with ADLs, mobility without the use of any assisted device.
Pt. anticipates DC to home once medically stable without needs.
Will remain available.
[2024-10-18] MEDS: NITRO-BID TOPICAL ×2 (17:14→17:19)
[2024-10-18 17:52] LABS: Glucose - Point of Care 220 mg/dl (70-99)
[2024-10-18] MEDS: LIPITOR 40 MG PO (17:57)
[2024-10-18] MEDS: NOVOLOG FLEXPEN-LOW RESISTANCE 2 UNITS SC (18:02)
--- NOTE | 2024-10-18 22:23 | PTCARENOTE ---
Received patient at change of shift. Patient awake, alert, and oriented sitting in the chair. Right radial site soft, little ecchymotic, and small spot of oozing on dressing. Patient used arm to push herself up to account for the other arm being in
the immobilizer post pacer placement. Discussed calling the RN to help get up, not to use arm. Right groin site clean, dry, and intact. No swelling, ecchymosis, or hematoma. BP 107/57, V-paced, 97% on room air. Discussed plan of care for the
evening. Patient verbalized understanding. Call jensen within reach.
[2024-10-18 22:43] LABS: Glucose - Point of Care 270 mg/dl (70-99)
[2024-10-18] MEDS: FLUSH (NSS) 1 FLUSH IV (22:54)
[2024-10-18] MEDS: ANCEF 5 IV (22:54)
[2024-10-19] VITALS (8 sets, daily range): BP systolic 95–119; BP diastolic 44–64
[2024-10-19] MEDS: NITRO-BID TOPICAL ×2 (00:13→06:42)
[2024-10-19 05:25] LABS: Hematocrit 33.8 % (37.0-47.0); Hemoglobin 10.9 g/dL (12.0-16.0); Mean Corp Hgb Conc. 32.2 g/dL (33.0-37.0); Mean Corpuscular Hgb 19.3 pg (27.0-31.0); Mean Corpuscular Volume 59.9 fL (81.0-99.0); Platelet Count 136 10^3/uL (130-400); Red Blood Cell Count 5.64 10^6/uL (4.20-5.40); Red Cell Dist. Width 20.3 % (11.5-14.5); White Blood Cell Count 9.5 10^3/uL (4.8-10.8)
[2024-10-19 05:38] LABS: Blood Urea Nitrogen 14 mg/dl (7-17); Calcium 8.9 mg/dl (8.4-10.2); Carbon Dioxide 26 mmol/L (22-30); Chloride 104 mmol/L (98-107); Estimated Creatinine Clearance 63 ml/min; Glucose 174 mg/dl (70-99); Potassium 4.1 mmol/L (3.5-5.1); Sodium 140 mmol/L (135-145); eGFR > 60.00
[2024-10-19] MEDS: TYLENOL 650 MG PO (06:41)
[2024-10-19] MEDS: ANCEF 5 IV (06:41)
[2024-10-19] MEDS: LIPITOR 40 MG PO (09:21)
[2024-10-19] MEDS: TOPROL XL PO (09:21)
[2024-10-19] MEDS: PRED FORTE 1% EYE DROPS 1 DROP RIGHT EYE ×2 (09:21→20:00)
[2024-10-19] MEDS: NOVOLOG FLEXPEN-LOW RESISTANCE SC (09:22)
[2024-10-19] MEDS: HYZAAR 50-12.5 PO (09:22)
--- NOTE | 2024-10-19 09:28 | W.PN.HOSP.TC ---
Today's Communication/Plan
-
Await cardiology input
Discharge
Assessment / Plan
Assessment / Plan
Gen-AAOx3, NAD
HEENT-NC, AT, anicteric, clear oral mm
Neck-supple
CV-reg, no M, +S1/S2
Lungs-clear B/L
Abd-soft, NT, ND
Ext-no edema
Musculoskeletal-no cyanosis, clubbing
Skin-warm and dry
Neuro-grossly non-focal
Psych-calm, cooperative
Complete heart block -underwent permanent pacemaker placement 10/18.
NSTEMI -now stable. Continue medical management.
Essential hypertension -relatively hypotensive this morning. Stop losartan, HCTZ.
DM 2 without hyperglycemia -hemoglobin A1c 7.1%. Glucose 174 this morning. Resume home meds on discharge.
Hyperlipidemia -continue atorvastatin.
Hypokalemia -check magnesium, replete.
Microcytic anemia -history of thalassemia. Follow-up as outpatient.
Full code
Dispo -can discharge home today if okay with cardiology. Outpatient follow-up.
32-minute spent in discharge process.
Anticipated Discharge: Today
Subjective/Interval History
-
Date of Service: October 19, 2024
Patient seen and examined. No complaints.
Objective Data
-
Labs:
Laboratory Results
10/19/24
04:43
WBC 9.5
Hgb 10.9 L
Hct 33.8 L
Plt Count 136
Sodium 140
Potassium 4.1 D
Chloride 104
Carbon Dioxide 26
BUN 14
Creatinine 0.7
Glucose 174 H
Calcium 8.9
Vital Signs:
Vital Signs
Temp Pulse Resp BP Pulse Ox
98.4 F 70 20 95/52 97
10/19/24 08:11 10/19/24 09:22 10/19/24 08:11 10/19/24 09:22 10/19/24 08:11
Review of Systems
-
History Source: Patient
All other systems: Reviewed and negative
--- NOTE | 2024-10-19 10:46 | W.PN.CARDCBS ---
Today's Communication / Plan
-
Stable cardiac status
Check proBNP
Check echo
Impression / Plan
-
Family Physician: Delma Ibanez
Rd Scientist: Kevon Henriquez
Impression:
Presented 10/17/2024 with acute onset chest pain, shortness of breath, nausea and neck pain
Palpitations
Abnormal troponin
NSTEMI
Hypokalemia
Type 2 diabetes
Intermediate thalassemia anemia
Right bundle branch block
PVCs
Atrial tachycardia
Appendectomy
Cholecystectomy
Hysterectomy
Left knee meniscus
Stress echo 04/13/2024: 6:51, 8 METS, 56% APMHR, EKG inconclusive for ischemia. Rare PACs, short runs of atrial tachycardia with 1 ventricular couplet. Blunted heart rate response to exercise. No regional wall motion abnormality at some max heart
rate
Echo 03/28/2024: EF 60 to 65%. No regional wall motion abnormalities, mild MR
Cardiac catheterization 10/18/2024: Luminal irregularities only, estimated EF 35-40%B. V gram potentially consistent with Takotsubo cardiomyopathy, LVEDP was 36
Medtronic dual-chamber pacer with conduction system pacing 10/18/2028
Plan:
She looks well from a cardiac standpoint despite LV dysfunction and complete heart block necessitating pacemaker implantation.
It may be that she has Takotsubo syndrome triggered by intermittent heart block.
Will check proBNP
From my standpoint she could probably go home and follow-up to the office. However she is reluctant to leave.
Presuming she stays, check an echocardiogram tomorrow. I suspect LV function may have already improved somewhat.
Now on beta-della, patient was already on Jardiance and losartan. Can adjust medication based on LV function.
Metformin should be on hold until tomorrow.
HPI 10/18/2024:
Patient is a 79-year-old male female with past medical history significant for type 2 diabetes, intermediate thalassemia anemia, PVCs and right bundle branch block who presented to emergency department 10/17/2024 with chest pressure. Patient
reports she was cooking dinner when she developed acute onset chest tightness/pressure associated with neck pain, shortness of breath, diaphoresis and nausea. She reports she has history of intermittent palpitations and rapid heartbeats but this
was different than what she has felt previously. EMS was called and she was given 4 baby aspirin and sublingual nitroglycerin x 3 in route. On arrival to ER chest pain was 2 out of 10 and slowly subsided. Initial troponin 0.115 and trending
upward now 0.690. EKG initially showed sinus bradycardia with first-degree AV block and right bundle branch block. Chest x-ray was unremarkable. Patient was placed on IV heparin drip and currently is chest pain-free at time of this evaluation.
Of note patient had echocardiogram and stress echo in March 2024. Echo showed preserved ejection fraction with mild MR. Stress echo was negative for ischemia at sub max heart rate of 56%. There were short atrial tachycardia noted during study.
Progress Note - Rd Scientist
Subjective
Date of Service: October 19, 2024:
PMH: Diabetes, right bundle branch block, thalassemia,
PSH: Appendectomy, cholecystectomy, hysterectomy, arthroscopy left knee
Allergies: None
Outpatient medications: Jardiance 25 a day, glimepiride 4 mg twice daily, losartan HCT, metformin, atorvastatin 40 mg a day
Current meds: Prednisolone, atorvastatin 40 mg a day, metoprolol ER 25 mg a day, insulin
107/54, pulse 67 respiratory rate 20, head neck exam unremarkable, lungs are clear, Aquacel dressing intact, regular rate and rhythm, no obvious murmurs, abdomen benign extremities without clubbing cyanosis or edema
Hemoglobin 10.9, BUN/creatinine 14 and 0.7
Chest x-ray new pacemaker, no pneumo,
pacemaker interrogation: Satisfactory
ECG AV pacing
Objective
Labs:
10/19/24 04:43
10/19/24 04:43
Labs
Hgb 10.9 g/dL (12.0-16.0) L 10/19/24 04:43
Hct 33.8 % (37.0-47.0) L 10/19/24 04:43
Plt Count 136 10^3/uL (130-400) 10/19/24 04:43
APTT 60.5 Sec (23.4-35.0) H 10/18/24 09:14
Sodium 140 mmol/L (135-145) 10/19/24 04:43
Potassium 4.1 mmol/L (3.5-5.1) D 10/19/24 04:43
BUN 14 mg/dl (7-17) 10/19/24 04:43
Creatinine 0.7 mg/dL (0.6-1.0) 10/19/24 04:43
Glucose 174 mg/dl (70-99) H 10/19/24 04:43
Troponins
10/17/24 10/17/24 10/18/24
20:06 23:01 00:08
Troponin I 0.115 H* 0.472 H* D Cancelled
10/18/24 10/18/24
03:00 09:14
Troponin I 0.690 H* D 0.438 H* D
Vital Signs and I&O:
Vital Signs
Temp Pulse Resp BP Pulse Ox
36.9 C 67 20 107/54 97
10/19/24 08:11 10/19/24 10:30 10/19/24 08:11 10/19/24 09:27 10/19/24 08:11
Vital Signs
Temp Pulse Resp BP Pulse Ox
36.9 C 67 20 107/54 97
10/19/24 08:11 10/19/24 10:30 10/19/24 08:11 10/19/24 09:27 10/19/24 08:11
Physical Exam
Physical Exam
See above
[2024-10-19] MEDS: NOVOLOG FLEXPEN-LOW RESISTANCE 2 UNITS SC ×2 (11:48→17:23)
[2024-10-19 11:53] LABS: Glucose - Point of Care 218 mg/dl (70-99)
--- NOTE | 2024-10-19 16:43 | PTCARENOTE ---
Discussed all nusing measure and post PPM instructions with pt. Encouraged questions. Will monitor.
[2024-10-19 17:11] LABS: Glucose - Point of Care 235 mg/dl (70-99)
--- NOTE | 2024-10-19 21:00 | PTCARENOTE ---
Received patient at change of shift. Patient awake, alert, and oriented, sitting in the chair. Left chest wall site clean, dry, and intact. Pressure dressing removed. No swelling, ecchymosis, or hematoma. Right radial site LOUISA, little ecchymotic, no
hematoma. Right groin site LOUISA, no ecchymosis, no hematoma. BP 119/55, V-paced 70s-80s, 98% on room air. Discussed plan of care for evening. Patient verbalized understanding. Call jensen within reach.
[2024-10-19 22:23] LABS: Glucose - Point of Care 287 mg/dl (70-99)
[2024-10-20 04:56] VITALS: BP 114/61
[2024-10-20 05:48] LABS: NT-proBNP 2710 pg/ml
[2024-10-20 07:12] VITALS: BP 122/63
[2024-10-20 07:30] LABS: Glucose - Point of Care 201 mg/dl (70-99)
--- NOTE | 2024-10-20 07:44 | W.PN.CARDCBS ---
Addendum entered and electronically signed by Leobardo Reis MD 10/20/24 09:38:
PMH: Diabetes, right bundle branch block, thalassemia,
PSH: Appendectomy, cholecystectomy, hysterectomy, arthroscopy left knee
Allergies: None
Outpatient medications: Jardiance 25 a day, glimepiride 4 mg twice daily, losartan HCT, metformin, atorvastatin 40 mg a day
Current meds: Prednisolone eyedrops, atorvastatin 40 mg a day, metoprolol ER 25 twice daily, losartan 25 mg a day
122/63, pulse 78, respiratory rate 18, afebrile, anxious, asking numerous questions, head neck exam unremarkable, lungs are clear regular rate and rhythm, abdomen benign, neck veins okay, no obvious murmurs, abdomen benign extremities without
clubbing cyanosis or edema Aquacel intact
proBNP is 2710
Echo is pending
Plan:
Overall, she is doing well status post pacemaker
She had LV dysfunction,, will await echo. I am hopeful that EF will improve. It is conceivable that she had Takotsubo syndrome, possibly triggered by stress of intermittent high-grade AV block.
Had luminal irregularities on catheterization, so appropriate to treat with statin therapy.
Blood pressure is relatively low, we will need to de-escalate her regimen at present and then uptitrate as blood pressure dictates.
Okay for discharge following echocardiogram.
Recommended medications at discharge:
Atorvastatin 40 mg a day
Metoprolol ER 25 mg daily
Losartan 25 mg daily
Jardiance 25 mg daily as on admission
Hold losartan hydrochlorothiazide
We will arrange for cardiac follow-up
Original Note:
Today's Communication / Plan
-
Resume Losartan if BP allows
Echo today
Outpatient cardiology follow arranged
stable for d/c
Impression / Plan
-
Family Physician: Delma Ibanez
Catalog Librarian: Kevon Henriquez
Impression:
Presented 10/17/2024 with acute onset chest pain, shortness of breath, nausea and neck pain
Palpitations
Abnormal troponin, non-ischemic myocardial injury likely due to intermittent heart block
Intermittent LBBB
Advanced high degree AV Block
S/p Medtronic dual-chamber pacer with conduction system pacing 10/18/2028
Hypokalemia, resolved
Type 2 diabetes
Intermediate thalassemia anemia
Right bundle branch block
PVCs
Atrial tachycardia
Appendectomy
Cholecystectomy
Hysterectomy
Left knee meniscus
Stress echo 04/13/2024: 6:51, 8 METS, 56% APMHR, EKG inconclusive for ischemia. Rare PACs, short runs of atrial tachycardia with 1 ventricular couplet. Blunted heart rate response to exercise. No regional wall motion abnormality at some max heart
rate
Echo 10/20/2024: pending
Echo 03/28/2024: EF 60 to 65%. No regional wall motion abnormalities, mild MR
Cardiac catheterization 10/18/2024: Luminal irregularities only, estimated EF 35-40%. LV gram potentially consistent with Takotsubo cardiomyopathy, LVEDP was 36
S/p Medtronic dual-chamber pacer with conduction system pacing 10/18/2028
Plan:
Presented 10/17/2024 with acute onset chest pain, shortness of breath, nausea and neck pain. Pain resolved with sublingual nitroglycerin.
-Abnormal troponin peaked 0.690. No significant CAD on cath 10/18/24 and had high degree AVB/CHB. Non-ischemic myocardial injury due to Heart block
-Lipids 10/18/2024 TC 98, HDL 52, LDL 23, triglycerides 119. Continue atorvastatin
-Reduced EF on LVG during cath. It may be Takotsubo syndrome triggered by intermittent heart block.
-Repeat Echo this am
-New to Toprol. Continue Jardiance. Losartan-HCTZ stopped this admission for hypotension. Would like to see back on Losartan if BP allows.
-ProBNP, 2710. However patient does not appear to be volume overloaded on examination.
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
- S/p Medtronic dual-chamber pacer with conduction system pacing 10/18/2028
- Review of tele with intermittently paced rhythm
- CXR post PPM stable w/o pneumothorax
- Toprol added this admission to help with intermittent atrial tachycardia.
History of Diabetes, Continue Jardiance. Was also on Metformin and Glimepiride prior to arrival. Defer to hospitalist if they should be resumed.
From cardiac standpoint she is stable to go home. Cardiology follow up has been arranged.
HPI 10/18/2024:
Patient is a 79-year-old male female with past medical history significant for type 2 diabetes, intermediate thalassemia anemia, PVCs and right bundle branch block who presented to emergency department 10/17/2024 with chest pressure. Patient
reports she was cooking dinner when she developed acute onset chest tightness/pressure associated with neck pain, shortness of breath, diaphoresis and nausea. She reports she has history of intermittent palpitations and rapid heartbeats but this
was different than what she has felt previously. EMS was called and she was given 4 baby aspirin and sublingual nitroglycerin x 3 in route. On arrival to ER chest pain was 2 out of 10 and slowly subsided. Initial troponin 0.115 and trending
upward now 0.690. EKG initially showed sinus bradycardia with first-degree AV block and right bundle branch block. Chest x-ray was unremarkable. Patient was placed on IV heparin drip and currently is chest pain-free at time of this evaluation.
Of note patient had echocardiogram and stress echo in March 2024. Echo showed preserved ejection fraction with mild MR. Stress echo was negative for ischemia at sub max heart rate of 56%. There were short atrial tachycardia noted during study.
Progress Note - Catalog Librarian
Subjective
Date of Service: October 20, 2024
Patient seen and examined. Patient reports she is feeling well. She has been able to ambulate around unit without chest pain or shortness of breath.
Objective
Labs:
10/19/24 04:43
10/19/24 04:43
Labs
Hgb 10.9 g/dL (12.0-16.0) L 10/19/24 04:43
Hct 33.8 % (37.0-47.0) L 10/19/24 04:43
Plt Count 136 10^3/uL (130-400) 10/19/24 04:43
APTT 60.5 Sec (23.4-35.0) H 10/18/24 09:14
Sodium 140 mmol/L (135-145) 10/19/24 04:43
Potassium 4.1 mmol/L (3.5-5.1) D 10/19/24 04:43
BUN 14 mg/dl (7-17) 10/19/24 04:43
Creatinine 0.7 mg/dL (0.6-1.0) 10/19/24 04:43
Glucose 174 mg/dl (70-99) H 10/19/24 04:43
Troponins
10/17/24 10/17/24 10/18/24
20:06 23:01 00:08
Troponin I 0.115 H* 0.472 H* D Cancelled
10/18/24 10/18/24
03:00 09:14
Troponin I 0.690 H* D 0.438 H* D
Vital Signs and I&O:
Vital Signs
Temp Pulse Resp BP Pulse Ox
98.2 F 78 18 122/63 97
10/20/24 07:09 10/20/24 07:30 10/20/24 07:09 10/20/24 07:12 10/20/24 07:09
Vital Signs
Temp Pulse Resp BP Pulse Ox
98.2 F 78 18 122/63 97
10/20/24 07:09 10/20/24 07:30 10/20/24 07:09 10/20/24 07:12 10/20/24 07:09
Physical Exam
Physical Exam
GEN: No distress, awake, Ox3
HEENT: supple, anicteric, mmm
LUNGS: CTA, no wheezes/rales
CV: Reg, S1/S2, no murmur, Rub or gallop
Chest: Aquacel Dressing clean dry intact over pacemaker site.
ABD: soft, BS+, NT/ND
EXT: No edema, Clubbing or cyanosis
NEURO: Gross non-focal
SKIN: No rash, Warm, dry, pink
[2024-10-20] MEDS: NOVOLOG FLEXPEN-LOW RESISTANCE 2 UNITS SC (08:27)
[2024-10-20] MEDS: COZAAR PO (08:28)
[2024-10-20] MEDS: PRED FORTE 1% EYE DROPS 1 DROP RIGHT EYE (08:28)
[2024-10-20] MEDS: LIPITOR PO (08:28)
[2024-10-20] MEDS: TOPROL XL PO (08:28)
--- NOTE | 2024-10-20 08:31 | W.PN.HOSP.TC ---
Addendum entered and electronically signed by Joey Rowland DO 10/21/24 13:09:
Correction: Acute nonischemic myocardial injury due to complete heart block and Takotsubo cardiomyopathy, not NSTEMI.
Original Note:
Today's Communication/Plan
-
Echocardiogram
Discharge planning
Assessment / Plan
Assessment / Plan
Gen-AAOx3, NAD
HEENT-NC, AT, anicteric, clear oral mm
Neck-supple
CV-reg, no M, +S1/S2
Lungs-clear B/L
Abd-soft, NT, ND
Ext-no edema
Musculoskeletal-no cyanosis, clubbing
Skin-warm and dry
Neuro-grossly non-focal
Psych-calm, cooperative
Complete heart block -underwent permanent pacemaker placement 10/18. Heart rate has been normal now.
NSTEMI -now stable. Cardiac catheterization done 10/18, nonobstructive coronary vessels, anterior and anterolateral wall motion abnormalities, possibly atypical Takotsubo's cardiomyopathy. Continue medical management. Echocardiogram pending. BNP
2709 but no clinical signs of heart failure.
Essential hypertension -hypotension resolved. She was on combination losartan/HCTZ prior to admission, HCTZ discontinued. Losartan resumed. Toprol-XL 25 mg daily started.
DM 2 without hyperglycemia -hemoglobin A1c 7.1%. Glucose 201 this morning. Resume home meds on discharge. Hold metformin for at least 48 hours after cardiac catheterization.
Hyperlipidemia -continue atorvastatin.
Hypokalemia -resolved.
Microcytic anemia -history of thalassemia. Follow-up as outpatient.
Full code
Dispo -can discharge today pending echo report and cardiology input. Outpatient follow-up.
35-minute spent in discharge process.
Anticipated Discharge: Today
Subjective/Interval History
-
Date of Service: October 20, 2024
Patient seen and examined. Feeling much better. No complaints.
Objective Data
-
Vital Signs:
Vital Signs
Temp Pulse Resp BP Pulse Ox
98.2 F 78 18 122/63 97
10/20/24 07:09 10/20/24 07:30 10/20/24 07:09 10/20/24 07:12 10/20/24 07:09
Review of Systems
-
History Source: Patient
All other systems: Reviewed and negative
[2024-10-20] MEDS: LIPITOR 40 MG PO (08:40)
[2024-10-20] MEDS: TOPROL XL 25 MG PO (08:41)
--- NOTE | 2024-10-20 09:50 | PTCARENOTE ---
Assumed care. Patient in chair. AOx 3, anxious. V-paced on telemetry, Aquacel dressing CDI. Fine crackles left base, denies shortness of breath, call jensen in reach
[2024-10-20 10:29] VITALS: BP 117/60
[2024-10-20] MEDS: COZAAR 25 MG PO (10:30)
[2024-10-20 11:11] VITALS: BP 119/59
[2024-10-20] MEDS: NOVOLOG FLEXPEN-LOW RESISTANCE 3 UNITS SC (13:14)
[2024-10-20 13:15] LABS: Glucose - Point of Care 256 mg/dl (70-99)
--- NOTE | 2024-10-20 13:41 | CM ---
CM following for DC planning needs.
Met w/ patient at bedside. Pt. is hopeful for DC soon.
There are no identified DC needs.
Plan is for home once medically stable, no needs.
--- NOTE | 2024-10-20 15:13 | W.DS.TRANS ---
DC Summary - Fitness Technician
-
Discharge Instructions:
Discharge Diagnosis/Procedures Complete heart block, anemia, Takotsubo
cardiomyopathy
Diet Low Cholesterol,Low Fat
Activity As tolerated
Driving Restrictions Not until seen by your Dr
Bathing Restrictions None
Instructions:
Stand-Alone Forms: DC Inst - Implanted Device
Changes to Home Medications: No
Discharge Medications:
DC Medications w/original date entered in [facility]
Hair,Skin and Nails 2 gummy PO DAILY Supplement 10/17/24
atorvastatin 10 mg tablet 40 mg PO DAILY High Cholesterol 10/17/24
cholecalciferol (vitamin D3) 25 mcg (1,000 unit) tablet 25 mcg PO DAILY Supplement 10/17/24
empagliflozin 25 mg tablet (Jardiance) 25 mg PO DAILY Diabetes 10/17/24
glimepiride 4 mg tablet 4 mg PO BID Diabetes 10/17/24
metformin 500 mg tablet,extended release 24 hr 500 mg PO BID Diabetes 10/17/24
milk thistle 1 tab PO DAILY Supplement 10/17/24
prednisolone acetate 1 % eye drops,suspension 1 drp RIGHT EYE BID Eye Condition 10/17/24
metoprolol succinate 25 mg tablet,extended release 24 hr 25 mg PO DAILY #30 tabs 10/19/24
losartan 25 mg tablet 25 mg PO DAILY #30 tabs 10/20/24
Home Medication Changes
Pending Results: No
[2024-10-20] MEDS: TYLENOL 650 MG PO (15:43)
--- NOTE | 2024-10-20 16:25 | PTCARENOTE ---
Patient escorted to main lobby. IV and telemetry removed. D/C teaching completed with patient and , Pacemaker site assessed by Chetna Agarwal prior to discharge. Precautions reviewed with patient, she and verbalized understanding.
== END 2024-10-20 16:12 | disposition home or self-care (01) | DRG 243 ==
LOC: IVU 08:41
PROVIDERS: Internal Medicine Cardiovascular Disease; Nurse Practitioner Family; Physician Assistant Medical; Registered Nurse; Student in an Organized Health Care Education/Training Program; ADMITTING PHYSICIAN Internal Medicine; ATTENDING PHYSICIAN Hospitalist; EMERGENCY PHYSICIAN Student in an Organized Health Care Education/Training Program; FAMILY PHYSICIAN Internal Medicine; OTHER PHYSICIAN Internal Medicine Interventional Cardiology
PROC: 02HK3JZ Insertion of Pacemaker Lead into Right Ventricle, Percutaneous Approach (ICD-10-PCS; 2024-10-18)
PROC: 0JH606Z Insertion of Pacemaker, Dual Chamber into Chest Subcutaneous Tissue and Fascia, Open Approach (ICD-10-PCS; 2024-10-18)
PROC: 02H63JZ Insertion of Pacemaker Lead into Right Atrium, Percutaneous Approach (ICD-10-PCS; 2024-10-18)
PROC: B2111ZZ Fluoroscopy of Multiple Coronary Arteries using Low Osmolar Contrast (ICD-10-PCS; 2024-10-18)
PROC: B2151ZZ Fluoroscopy of Left Heart using Low Osmolar Contrast (ICD-10-PCS; 2024-10-18)
PROC: 4A023N7 Measurement of Cardiac Sampling and Pressure, Left Heart, Percutaneous Approach (ICD-10-PCS; 2024-10-18)
DX: I44.2 Atrioventricular block, complete (principal); I51.81 Takotsubo syndrome; I5A Non-ischemic myocardial injury (non-traumatic); E78.00 Pure hypercholesterolemia, unspecified; D56.1 Beta thalassemia; E87.6 Hypokalemia; I10 Essential (primary) hypertension; E11.9 Type 2 diabetes mellitus without complications; I44.7 Left bundle-branch block, unspecified; Z79.84 Long term (current) use of oral hypoglycemic drugs; Z79.899 Other long term (current) drug therapy; Z82.49 Family history of ischemic heart disease and other diseases of the circulatory system
CPT/HCPCS: 33208; 71045; 71046; 80048; 80053; 80061; 82962; 83036; 83735; 83880; 84443; 84484; 85025; 85027; 85347; 85730; 93005; 93306; 93458; C1769; C1785; C1887; C1892; C1894; C1898; Q9967

== ENCOUNTER → 2025-02-27 13:42 | Outpatient (REF) | payer MEDICARE, BC, SELFPAY | LOC: HWRCS 13:42 | PROVIDERS: ATTENDING PHYSICIAN Physician Assistant Medical; FAMILY PHYSICIAN Internal Medicine | DX: I51.81 Takotsubo syndrome (principal); R07.9 Chest pain, unspecified | CPT/HCPCS: 93306 ==